=== PATIENT | male | born 2005 | race Caucasian/White ===

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

== ENCOUNTER → 2025-05-15 | Outpatient (REF) | payer OTHER ==
[2025-05-15 11:25] LABS: TOTAL PROTEIN,RANDOM URINE 223.7 MG/DL (0.0-14.0)
== END ==
LOC: M LAB REF 07:51
PROVIDERS: ATTEND Pediatrics Pediatric Nephrology
DX: R80.1 Persistent proteinuria, unspecified (principal)